=== PATIENT | male | born 2000 | race Two or more races ===

== ENCOUNTER 2018-01-28 07:27 | Emergency (ER) | payer MEDICAID ==
[2018-01-28 07:34] VITALS: BP 163/88; PULSE 86; RESP 16; TEMP 97.5; O2SAT 96
[2018-01-28] MEDS ORDERED: IBUPROFEN 600 MG TAB PO ONE (07:49)
--- NOTE | 2018-01-28 07:49 | EDPHY ---
H & P Time Seen by Provider: 01/28/18 07:35 HPI/ROS: CHIEF COMPLAINT: Left knee pain HISTORY OF PRESENT ILLNESS: Patient was using a machine at the gym which was moving his knee in a bicycle type motion with resistance. His left knee was sore medially after that but he continued to walk and go to work and today at work the pain was getting worse so he presents for evaluation. Located medial to the left patella and slightly inferior, worse with flexion and weight- bearing. REVIEW OF SYSTEMS: No fever, no joint swelling, no instability, no direct blow twisting or trauma. No skin changes, no weakness or numbness in the left foot. PAST MEDICAL HISTORY: Appendectomy Social history: Here with his father, works at [employer]. General Appearance: Alert and conversant, cooperative. External skin exam is normal and no joint effusion. Normal range of motion of hip and ankle. Normal motor and sensory in the foot normal posterior tibial pulse. Patient has a negative Valentín's stable to varus and valgus stress and anterior and posterior drawer. Some tenderness medially at the distal portion of the quadriceps and its attachment. No patellar tenderness. No bony tenderness at the knee. Good passive range of motion with full extension. Emergency Department course/MDM: Possible that he has meniscal injury or more likely quadriceps muscle strain. Unlikely to be fracture, DVT, septic joint, acute ACL tear or other joint instability. Knee immobilizer and Motrin. Does not have clinical indication for x-ray or other emergent imaging. Follow-up with [facility] next week. 2 days off of work for rest inflammation reduction. Smoking Status: Never smoked Constitutional: Initial Vital Signs Temperature (C) 36.4 C 01/28/18 07:32 Heart Rate 86 01/28/18 07:32 Respiratory Rate 16 01/28/18 07:32 Blood Pressure 163/88 H 01/28/18 07:32 O2 Sat (%) 96 01/28/18 07:32 O2 Delivery Mode Room Air Allergies/Adverse Reactions: No Known Allergies Allergy (Verified 07/11/15 13:38) Home Medications: Medication Instructions Recorded NK [No Known Home Meds] 01/28/18 MDM/Departure - MDM Medications Given: Discontinued Medications Ibuprofen (Motrin) 600 mg PO EDNOW ONE Stop: 01/28/18 07:50 Last Admin: 01/28/18 07:55 Dose: 600 mg - Depart Disposition: Home, Routine, Self-Care Clinical Impression: Strain of left knee Qualifiers: Encounter type: initial encounter Qualified Code(s): S86.912A - Strain of unspecified muscle(s) and tendon(s) at lower leg level, left leg, initial encounter Condition: Good Instructions: Muscle Strain (ED), Knee Pain (ED) Additional Instructions: Please follow-up with your clinic or Orthopedics next week if still symptomatic after 48 hr. Knee immobilizer, activity as tolerated as limited by pain, no work for the next 2 days. Stand Alone Forms: Work Excuse Referrals: [facility],. [Clinic] - As per Instructions Ronnie Charles MD [Medical Doctor] - As per Instructions
== END 2018-01-28 08:08 | disposition home or self-care (01) ==
DX: S86.912A Strain of unspecified muscle(s) and tendon(s) at lower leg level, left leg, initial encounter (principal); X58.XXXA Exposure to other specified factors, initial encounter; Y92.89 Other specified places as the place of occurrence of the external cause; Y99.8 Other external cause status; Y93.B1 Activity, exercise machines primarily for muscle strengthening
CPT/HCPCS: L1830

== ENCOUNTER 2018-02-24 02:16 | Emergency (ER) | payer MEDICAID ==
--- NOTE | 2018-02-24 02:24 | EDPHY ---
H & P Time Seen by Provider: 02/24/18 02:23 HPI/ROS: HPI CHIEF COMPLAINT: Low back pain HISTORY OF PRESENT ILLNESS: Patient is a 17-year-old male he is otherwise healthy, presents emergency room with low back pain. Patient reports that on Tuesday he went to the gym he was doing sit-ups and injured his back. He states he did some back exercises where he was lifting some weights until he has ongoing midline lumbar low back pain. The pain does not radiate anywhere. Does not go down his legs. He has no numbness or tingling. Denies any weakness. The pain is located in the lumbar region low back. Denies fever. Denies abdominal pain chest pain or shortness of breath. Denies urinary symptoms. States this all started while lifting weights at the gym. Describes 6/10 dull ache. Past Medical History: No significant medical history Past Surgical History: Appendectomy Social History: Denies daily use drugs alcohol tobacco. Family History: Noncontributory ROS REVIEW OF SYSTEMS: A comprehensive 10 point review of systems is otherwise negative aside from elements mentioned in the history of present illness. Exam Constitutional appears well nontoxic no acute distress triage nursing summary reviewed, vital signs reviewed, awake/alert. Eyes normal conjunctivae and sclera, EOMI, PERRLA. HENT normal inspection, atraumatic, moist mucus membranes, no epistaxis, neck supple/ no meningismus, no raccoon eyes. Respiratory clear to auscultation bilaterally, normal breath sounds, no respiratory distress, no wheezing. Cardiovascular rate normal, regular rhythm, no murmur, no edema, distal pulses normal. Gastrointestinal soft, non-tender, no rebound, no guarding, normal bowel sounds, no distension, no pulsatile mass. Genitourinary no CVA tenderness. Musculoskeletal I do not appreciate midline back pain with on exam, no step-offs , no crepitus, no midline vertebral tenderness, full range of motion, no calf swelling, no tenderness of extremities, no meningismus, good pulses, neurovascularly intact. Skin pink, warm, & dry, no rash, skin atraumatic. Neurologic awake, alert and oriented x 3, AAOx3, moves all 4 extremities equally, motor intact, sensory intact, CN II-XII intact, normal cerebellar, normal vision, normal speech. Psychiatric normal mood/affect. Heme/Lymph/Immune no lymphadenopathy. Differential Diagnosis: Includes but is not limited to in a particular order lumbar strain, disc herniation, annular tear, compression fracture, degenerative joint disease, nerve root compression Medical Decision Making: Plan for this patient x-ray lumbar spine, Trent for pain control, ibuprofen anti-inflammatory, and Decadron. Re-evaluate. Re-evaluation: X-ray lumbar spine reviewed. I do not appreciate significant malalignment or compression fracture. Image interpreted by myself. 0315: Patient re-evaluated he is feeling better after pain medicine here. I do recommend he rest over the next 2 weeks. No strenuous back activity. I will give him a limited supply of Trent, anti-inflammatory ibuprofen, recommend ice or heating pad over makes him feel better. If continue have pain recommend close follow-up with his primary care doctor. He may need PT. Return precautions discussed. Understands return emergency room if develops worsening back pain fever worsening symptoms. Source: Patient - Personal History Tetanus Vaccine Date: unsure - Medical/Surgical History Hx Asthma: No Hx Chronic Respiratory Disease: No Hx Diabetes: No Hx Cardiac Disease: No Hx Renal Disease: No Hx Cirrhosis: No Hx Alcoholism: No Hx HIV/AIDS: No Hx Splenectomy or Spleen Trauma: No Other PMH: "something on my intestines and/or liver when I was 3 years old" - Social History Smoking Status: Never smoked Constitutional: Initial Vital Signs Temperature (C) 36.6 C 02/24/18 02:23 Heart Rate 79 02/24/18 02:23 Respiratory Rate 16 02/24/18 02:23 Blood Pressure 132/88 H 02/24/18 02:23 O2 Sat (%) 97 02/24/18 02:23 O2 Delivery Mode Room Air Allergies/Adverse Reactions: No Known Allergies Allergy (Verified 02/24/18 02:22) Home Medications: Medication Instructions Recorded Dexamethasone [Decadron 4 MG (*)] 8 mg PO DAILY #6 tab 02/24/18 Hydrocodone/APAP 5/325 [Trent 1 - 2 tab PO Q4H PRN #10 tab 02/24/18 5/325] Ibuprofen [Motrin (*)] 800 mg PO Q6-8PRN #14 tab 02/24/18 Medical Decision Making - Data Points Medications Given: Discontinued Medications Hydrocodone Bitart/Acetaminophen (Trent 5/325mg Prepack#6) 1 btl TAKEHOME EDNOW ONE Stop: 02/24/18 02:26 Last Admin: 02/24/18 02:30 Dose: 1 btl Hydrocodone Bitart/Acetaminophen (Trent 10/325) 1 tab PO EDNOW ONE Stop: 02/24/18 02:26 Last Admin: 02/24/18 02:30 Dose: 1 tab Dexamethasone (Decadron Injection) 10 mg PO EDNOW ONE Stop: 02/24/18 02:29 Last Admin: 02/24/18 02:32 Dose: 10 mg Ibuprofen (Motrin) 800 mg PO EDNOW ONE Stop: 02/24/18 02:26 Last Admin: 02/24/18 02:30 Dose: 800 mg Departure - Departure Disposition: Home, Routine, Self-Care Clinical Impression: Lumbar back pain Condition: Good Instructions: Hydrocodone/Acetaminophen (By mouth) Additional Instructions: 1. Rest. 2. Anti-inflammatory pain medicine for mild pain. 3. Trent for severe pain. 4. You may use ice or heat whichever helps either the best. 5. Follow up with your primary care doctor Referrals: NONE *PRIMARY CARE P,. [Primary Care Provider] - As per Instructions [facility],. [Clinic] - As per Instructions Prescriptions: Dexamethasone [Decadron 4 MG (*)] 8 mg PO DAILY #6 tab Hydrocodone/APAP 5/325 [Trent 5/325] 1 - 2 tab PO Q4H PRN #10 tab PRN Reason: Pain, Moderate Ibuprofen [Motrin (*)] 800 mg PO Q6-8PRN #14 tab
[2018-02-24] MEDS ORDERED: IBUPROFEN 800 MG TAB PO ONE (02:25)
[2018-02-24] MEDS ORDERED: HYDROCODONE/APAP 10/325 TAB PO ONE (02:25)
[2018-02-24] MEDS ORDERED: HYDROCOD/APAP 5/325 PREPACK#6 BTL TAKEHOME ONE (02:25)
[2018-02-24] MEDS ORDERED: DEXAMETHASONE 10 MG/ML VIAL PO ONE (02:28)
[2018-02-24 03:25] VITALS: BP 138/68
== END 2018-02-24 03:25 | disposition home or self-care (01) ==
DX: S39.92XA Unspecified injury of lower back, initial encounter (principal); X50.0XXA Overexertion from strenuous movement or load, initial encounter; Y92.39 Other specified sports and athletic area as the place of occurrence of the external cause; Y99.8 Other external cause status; Y93.F2 Activity, caregiving, lifting
CPT/HCPCS: J1100

== ENCOUNTER 2019-01-31 03:21 | Emergency (ER) | payer MEDICAID ==
[2019-01-31 03:29] VITALS: BP 118/73
--- NOTE | 2019-01-31 03:37 | EDPHY ---
H & P Stated Complaint: R wrist inj 01/19 Time Seen by Provider: 01/31/19 03:36 HPI/ROS: HPI CHIEF COMPLAINT: Right wrist pain x2 weeks. HISTORY OF PRESENT ILLNESS: Patient otherwise healthy 18-year-old male, he presents emergency room with right wrist pain. He states that he injured his right wrist 2 weeks ago while arm wrestling 1 of his friends. He remembers while arm wrestling there is some great force placed on his right wrist and hand pain afterwards. For the past 2 weeks he has been unable to appropriately move it. He has pain with range of motion of flexion extension of his wrist. Also when he goes to supinate or pronate his wrist he has discomfort. He states that is been bothered for 2 weeks and he decided he could not take it anymore so he decided come the emergency room for evaluation. No new injury. Does report the swelling has went down. He is mainly tender over the ulnar side distal wrist. Denies any focal numbness or tingling or weakness. Past Medical History: Denies significant medical history Past Surgical History: Denies significant surgical history Social History: Denies drugs alcohol tobacco. Family History: Noncontributory ROS REVIEW OF SYSTEMS: 10 Systems were reviewed and negative with the exception of the elements mentioned in the history of present illness. Exam Constitutional triage nursing summary reviewed, vital signs reviewed, awake/ alert. Eyes normal conjunctivae and sclera, EOMI, PERRLA. HENT normal inspection, atraumatic, moist mucus membranes, no epistaxis, neck supple/ no meningismus, no raccoon eyes. Respiratory clear to auscultation bilaterally, normal breath sounds, no respiratory distress, no wheezing. Cardiovascular rate normal, regular rhythm, no murmur, no edema, distal pulses normal. Gastrointestinal soft, non-tender, no rebound, no guarding, normal bowel sounds, no distension, no pulsatile mass. Genitourinary no CVA tenderness. Musculoskeletal right wrist: Good distal pulse, good cap refill, flexion extension are okay but with range of motion has discomfort. When he is able to supinate and pronate his wrist he has some discomfort. Good cap refill, no signs of significant swelling. Mild tender palpation over the distal wrist ulnar side. no midline vertebral tenderness, full range of motion, no calf swelling, no tenderness of extremities, no meningismus, good pulses, neurovascularly intact. Skin pink, warm, & dry, no rash, skin atraumatic. Neurologic awake, alert and oriented x 3, AAOx3, moves all 4 extremities equally, motor intact, sensory intact, CN II-XII intact, normal cerebellar, normal vision, normal speech. Psychiatric normal mood/affect. Heme/Lymph/Immune no lymphadenopathy. Differential Diagnosis: Includes but is not limited to in a particular order right wrist sprain, right wrist fracture, soft tissue injury, contusion Medical Decision Making: Plan for this patient x-ray right wrist and re- evaluate. Re-evaluation: X-ray of the right wrist reviewed by myself. Negative for acute fracture. Patient be splinted in a sugar-tong splint for comfort. I do recommend he follows up with Orthopedics. Discussed this at length. Splinted in sungar tong, feels comfortable. Neurovasc intact. good cap refill. Patient understands to follow up with Ortho. Ice/Nsaids/elevation. Follow up with ortho for splint take down, and re-eval. Source: Patient - Personal History Current Tetanus/Diphtheria Vaccine: Yes Tetanus Vaccine Date: unsure - Medical/Surgical History Hx Asthma: No Hx Chronic Respiratory Disease: No Hx Diabetes: No Hx Cardiac Disease: No Hx Renal Disease: No Hx Cirrhosis: No Hx Alcoholism: No Hx HIV/AIDS: No Hx Splenectomy or Spleen Trauma: No Other PMH: "something on my intestines and/or liver when I was 3 years old" - Social History Smoking Status: Never smoked Constitutional: Initial Vital Signs Temperature (C) 36.5 C 01/31/19 03:25 Heart Rate 70 01/31/19 03:25 Respiratory Rate 18 01/31/19 03:25 Blood Pressure 118/73 01/31/19 03:25 O2 Sat (%) 96 01/31/19 03:25 O2 Delivery Mode Room Air Allergies/Adverse Reactions: No Known Allergies Allergy (Verified 02/24/18 02:22) Home Medications: Medication Instructions Recorded NK [No Known Home Meds] 01/31/19 Departure - Departure Disposition: Home, Routine, Self-Care Clinical Impression: Sprain of wrist, right Qualifiers: Encounter type: initial encounter Qualified Code(s): S63.501A - Unspecified sprain of right wrist, initial encounter Condition: Good Instructions: Wrist Sprain (ED) Additional Instructions: 1. Recommend elevation 2. Recommend ice. 3. Recommend alternating Tylenol and Motrin for pain control. 4. Please follow up with orthopedic surgery. Referrals: NONE *PRIMARY CARE P,. [Primary Care Provider] - As per Instructions Lupillo Edmond MD [Medical Doctor] - As per Instructions
== END 2019-01-31 05:41 | disposition home or self-care (01) ==
PROC: 2W3CX1Z Immobilization of Right Lower Arm using Splint (ICD-10-PCS; principal; 2019-01-31)
DX: S63.501A Unspecified sprain of right wrist, initial encounter (principal); X50.0XXA Overexertion from strenuous movement or load, initial encounter; Y93.83 Activity, rough housing and horseplay
CPT/HCPCS: A4565